=== PATIENT | male | born 1995 | race Hispanic/Latino ===

== ENCOUNTER 2024-02-08 17:55 | Emergency (ER) | payer OTHER ==
[~2024-02-08] VITALS: Ht 180.3 cm; Wt 109.8 kg
[2024-02-08 17:56] VITALS: BP 132/70; TEMP 97.2; O2SAT 96
[2024-02-08] MEDS ORDERED: LIDOCAINE 1% MDV 20ML VIAL SC ONE (20:05)
[2024-02-08] MEDS: NEOSPORIN OINT 0.9 GM PKT TOP ONE (20:05)
== END 2024-02-08 20:43 | disposition home or self-care (01) ==
LOC: M ED 17:55
DX: S61.412A Laceration without foreign body of left hand, initial encounter (principal); Y92.9 Unspecified place or not applicable; Y93.G1 Activity, food preparation and clean up; Y99.9 Unspecified external cause status